=== PATIENT | male | born 1990 | race African-American/Black ===

== ENCOUNTER 2017-01-29 14:54 | Emergency (ER) | payer SELFPAY ==
[~2017-01-29] VITALS: Ht 180.3 cm; Wt 83.9 kg
[~2017-01-29 14:54] MED LIST: ALBU8.5H8 IH; ALBU8.5H8 INH; BACI3.5O8 OS; BENZ100C PO; CEPH-264 PO
[2017-01-29 15:05] VITALS: BP 135/75
[2017-01-29] MEDS ORDERED: KETOROLAC 60 MG/2 ML VIAL. IM ONE (15:45)
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
[2017-01-29] MEDS ORDERED: NAPR500T PO (16:56)
[2017-01-29] MEDS ORDERED: DIAZ5TAB PO (16:56)
== END 2017-01-29 17:05 | disposition home or self-care (01) ==
LOC: ER 14:54
DX: S13.9XXA Sprain of joints and ligaments of unspecified parts of neck, initial encounter (principal); S83.92XA Sprain of unspecified site of left knee, initial encounter; S00.83XA Contusion of other part of head, initial encounter; S20.212A Contusion of left front wall of thorax, initial encounter; S00.03XA Contusion of scalp, initial encounter; F17.200 Nicotine dependence, unspecified, uncomplicated; F12.10 Cannabis abuse, uncomplicated; Y08.89XA Assault by other specified means, initial encounter; Y93.89 Activity, other specified; Y99.8 Other external cause status; Y92.89 Other specified places as the place of occurrence of the external cause
CPT/HCPCS: 70450; 71250; 72125; 73562; 96372; 99284; J1885